=== PATIENT | female | born 1975 | race Caucasian/White ===

== ENCOUNTER 2022-12-24 11:33 | Emergency (ER) | payer BC ==
[2022-12-24] MEDS: Bacitracin/Neomycin/Polymyxin B Oint 0.9 GM U/D Packet TOP ONE (12:32)
[2022-12-24] MEDS: Lidocaine 1% 5 ML VIAL INJECT ONE (12:32)
[2022-12-24] MEDS: Acetaminophen 500 MG Tab PO ONE (12:37)
== END 2022-12-24 12:40 | disposition home or self-care (01) ==
LOC: CC.ED 11:33
DX: S61.211A Laceration without foreign body of left index finger without damage to nail, initial encounter (principal); Z87.891 Personal history of nicotine dependence; Z79.899 Other long term (current) drug therapy; W26.0XXA Contact with knife, initial encounter
CPT/HCPCS: 12001; 99282; 99283; A9270-GY; J3490